=== PATIENT | male | born 2000 | race Two or more races ===

== ENCOUNTER 2018-05-07 21:57 | Emergency (ER) | payer SELFPAY ==
[~2018-05-07] VITALS: Ht 177.8 cm; Wt 95.3 kg
[2018-05-07 22:20] VITALS: BP 143/64
--- NOTE | 2018-05-07 22:38 | PHYS DOC ---
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 Patient states that he has a numbness and heaviness at times sharp pain in his right neck, right shoulder, upper arm, upper back. Review of Systems Review of Systems Constitutional: Denies fever or chills [] Eyes: Denies change in visual acuity, redness, or eye pain [] HENT: Denies nasal congestion or sore throat [] Respiratory: Denies cough or shortness of breath [] Cardiovascular: No additional information not addressed in HPI [] GI: Denies abdominal pain, nausea, vomiting, bloody stools or diarrhea [] : Denies dysuria or hematuria [] Musculoskeletal: Upper back pain, Right neck, right shoulder, upper back numbness/heaviness and limited ROM. Shoulder joint pain [] Integument: Denies rash or skin lesions [] Neurologic: Denies headache, focal weakness or sensory changes [] Endocrine: Denies polyuria or polydipsia [] All other systems were reviewed and found to be within normal limits, except as documented in this note. Current Medications Current Medications Current Medications Medications (Trade) Dose Ordered Sig/Lizz Start Time Stop Time Status Last Admin Dose Admin Dexamethasone (Decadron) 8 mg 1X ONCE 05/07/18 23:00 05/07/18 23:01 DC 05/07/18 23:03 8 MG Ketorolac Tromethamine (Toradol Im) 60 mg 1X ONCE 05/07/18 23:00 05/07/18 23:01 DC 05/07/18 23:02 60 MG Orphenadrine Citrate (Norflex) 60 mg 1X ONCE 05/07/18 23:00 05/07/18 23:01 DC 05/07/18 23:03 60 MG Allergies Allergies Allergies Coded Allergies Type Severity Reaction Last Updated Verified No Known Drug Allergies 05/07/18 No Physical Exam Physical Exam Constitutional: Well developed, well nourished, no acute distress, non-toxic appearance. [] HENT: Normocephalic, atraumatic, bilateral external ears normal, oropharynx moist, no oral exudates, nose normal. [] Eyes: PERRLA, EOMI, conjunctiva normal, no discharge. [] Neck: Normal range of motion, no tenderness, supple, no stridor. [] Cardiovascular:Heart rate regular rhythm, no murmur [] Lungs & Thorax: Bilateral breath sounds clear to auscultation [] Abdomen: Bowel sounds normal, soft, no tenderness, no masses, no pulsatile masses. [] Skin: Warm, dry, no erythema, no rash. [] Back: No tenderness, no CVA tenderness. [] Extremities: No tenderness, no cyanosis, no clubbing, Right upper extremity limited ROM and numbness, no edema. [] Neurologic: Alert and oriented X 3, normal motor function, normal sensory function, no focal deficits noted. [] Psychologic: Affect normal, judgement normal, mood normal. 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 Patient states that he has a numbness and heaviness at times sharp pain in his right neck, right shoulder, upper arm, upper back. Patient rates his pain 10 out of 10. Patient can move all joints but range of motion is limited due to pain. Patient has no swelling at the shoulder or at the elbow or wrist. Patient has no swelling or deformity in that right upper extremity. When I palpate the extremity patient states that he cannot feel me palpate the extremity that it is numb. Patient can move the extremity. Olga: I received signout from [employer] at 11 pm. imaging negative pt states he has had shoulder pain for weeks or longer but it got worse after the above injury. reassured, conservativwe tx, f/u pmd as needed for more advanced imaging. [] Dragon Disclaimer Dragon Disclaimer This electronic medical record was generated, in whole or in part, using a voice recognition dictation system. Departure Departure Impression: Primary Impression: Shoulder pain Disposition: HOME, SELF-CARE Condition: STABLE ROQUE FOLEY APRN May 07, 2018 22:38 KRZYSZTOF YEPEZ MD May 07, 2018 23:49
[2018-05-07] MEDS ORDERED: DEXAMETHASONE 4 MG TABLET PO ONE (23:00)
[2018-05-07] MEDS ORDERED: KETOROLAC 60 MG/2 ML INJ. IM ONE (23:00)
[2018-05-07] MEDS ORDERED: ORPHENADRINE CITRATE 60 MG/2 ML VIAL. IM ONE (23:00)
--- NOTE | 2018-05-08 09:17 | RAD ---
EXAM: Right humerus, 2 views; cervical spine, 5 views. HISTORY: Soccer injury. COMPARISON: None. FINDINGS: Right humerus: 2 views of the right humerus are obtained. There is no fracture, dislocation or subluxation. Cervical spine: Frontal, lateral, bilateral oblique, odontoid and swimmer's views of the cervical spine are obtained. There is no listhesis. The vertebral bodies are normal in height and the disc spaces are preserved. There is no foraminal stenosis. The prevertebral soft tissues are unremarkable. IMPRESSION: No acute osseous finding. Electronically signed by: Jaymie Crespo MD (05/08/2018 9:13 AM) [place] [id number]
--- NOTE | 2018-05-08 09:17 | RAD ---
Examination: SHOULDER 2+V RIGHT History: injured self playing soccer; pain Comparison/Correlation: None Findings: Total of 6 images of the right shoulder were obtained. Joint spaces are normal. No acute fracture or bony destruction. Soft tissues are unremarkable. Visualized represent lung field is normal. Impression: Normal right shoulder x-ray exam. Electronically signed by: Jakub Denson MD (05/08/2018 9:13 AM) [id number]
== END 2018-05-08 00:14 | disposition home or self-care (01) ==
LOC: ER 21:57
DX: M25.511 Pain in right shoulder (principal); M54.2 Cervicalgia; M54.6 Pain in thoracic spine; M79.621 Pain in right upper arm; R20.0 Anesthesia of skin
CPT/HCPCS: 72050; 73030; 73060; 96372; 99284; J1885; J2360; J8540